=== PATIENT | female | born 1990 | race American Indian/Alaskan Native ===

== ENCOUNTER 2020-12-19 18:16 | Emergency (ER) | payer BC ==
[2020-12-19 18:39] VITALS: BP 110/64
[2020-12-19] MEDS ORDERED: hydrOXYzine HCL 25 MG TAB PO ONE (18:43)
--- NOTE | 2020-12-19 19:03 | Emergency Department Report ---
ED General Adult HPI - General Chief complaint: Anxiety Stated complaint: TIGHTNESS IN CHEST Time Seen by Provider: 12/19/20 18:38 Source: patient Mode of arrival: Ambulatory Limitations: No Limitations - History of Present Illness Initial comments: Patient is a 30-year-old female who presents emergency room complaints of "possible anxiety/panic attack." She states that she has been feeling chest tightness for couple of days. Patient states that her mother was just recently admitted for pneumonia and her mother's is not able to fully care for himself and she is also working a job and going to school and she has had a lot of increased stress. She denies any shortness of breath, fever, cough, nausea, vomiting, diarrhea, diaphoresis, leg swelling, calf pain, hemoptysis. She denies any recent travel, recent surgery, hormone use. Past medical history of asthma and GERD. No allergies to medications. She is a never smoker. - Related Data Previous Rx's Medication Instructions Recorded Last Taken Type hydrOXYzine HCL [Atarax] 25 mg PO Q6HR PRN #10 tablet 12/19/20 Unknown Rx Allergies Allergy/AdvReac Type Severity Reaction Status Date / Time No Known Allergies Allergy Verified 12/19/20 18:39 ED Review of Systems ROS: Stated complaint: TIGHTNESS IN CHEST Other details as noted in HPI Comment: All other systems reviewed and negative ED Past Medical Hx - Past Medical History Hx GERD: Yes Hx Asthma: Yes - Surgical History Past Surgical History?: No - Social History Smoking Status: Never Smoker Substance Use Type: None - Medications Home Medications: Home Medications Medication Instructions Recorded Confirmed Last Taken Type hydrOXYzine HCL [Atarax] 25 mg PO Q6HR PRN #10 tablet 12/19/20 Unknown Rx ED Physical Exam - General Limitations: No Limitations General appearance: alert, in no apparent distress - Head Head exam: Present: atraumatic, normocephalic - Eye Eye exam: Present: normal appearance - ENT ENT exam: Present: mucous membranes moist - Respiratory Respiratory exam: Present: normal lung sounds bilaterally. Absent: respiratory distress, wheezes, rales, rhonchi, stridor, chest wall tenderness, accessory muscle use, decreased breath sounds, prolonged expiratory - Cardiovascular Cardiovascular Exam: Present: regular rate, normal rhythm, normal heart sounds. Absent: systolic murmur, diastolic murmur, rubs, gallop - Neurological Exam Neurological exam: Present: alert, oriented X3 - Psychiatric Psychiatric exam: Present: anxious. Absent: homicidal ideation, suicidal ideation - Skin Skin exam: Present: warm, dry, intact ED Course Vital Signs 12/19/20 18:38 Temperature 98.3 F Pulse Rate 96 H Respiratory 16 Rate Blood Pressure 110/64 [Left] O2 Sat by Pulse 99 Oximetry ED Medical Decision Making - Lab Data Result diagrams: 12/19/20 18:48 12/19/20 18:48 Lab Results 12/19/20 12/19/20 12/19/20 Range/Units 18:48 18:48 18:48 WBC 6.9 (4.5-11.0) K/mm3 RBC 4.10 (3.65-5.03) M/mm3 Hgb 11.8 (10.1-14.3) gm/dl Hct 35.2 (30.3-42.9) % MCV 86 (79-97) fl MCH 29 (28-32) pg MCHC 34 (30-34) % RDW 14.6 (13.2-15.2) % Plt Count 294 (140-440) K/mm3 Lymph % (Auto) 24.4 (13.4-35.0) % [place] % (Auto) 11.4 H (0.0-7.3) % Eos % (Auto) 0.9 (0.0-4.3) % Baso % (Auto) 1.0 (0.0-1.8) % Lymph # (Auto) 1.7 (1.2-5.4) K/mm3 [place] # (Auto) 0.8 (0.0-0.8) K/mm3 Eos # (Auto) 0.1 (0.0-0.4) K/mm3 Baso # (Auto) 0.1 (0.0-0.1) K/mm3 Seg Neutrophils % 62.3 (40.0-70.0) % Seg Neutrophils # 4.3 (1.8-7.7) K/mm3 Sodium 138 (137-145) mmol/L Potassium 4.1 (3.6-5.0) mmol/L Chloride 102.3 (98-107) mmol/L Carbon Dioxide 22 (22-30) mmol/L Anion Gap 18 mmol/L BUN 5 L (7-17) mg/dL Creatinine 0.6 (0.6-1.2) mg/dL Estimated GFR > 60 ml/min BUN/Creatinine Ratio 8 % Glucose 110 H (65-100) mg/dL Calcium 9.7 (8.4-10.2) mg/dL Total Bilirubin 0.70 (0.1-1.2) mg/dL AST 23 (5-40) units/L ALT 11 (7-56) units/L Alkaline Phosphatase 72 (35-129) units/L Troponin T < 0.010 (0.00-0.029) ng/mL Total Protein 8.0 (6.3-8.2) g/dL Albumin 4.5 (3.9-5) g/dL Albumin/Globulin Ratio 1.3 % HCG, Qual Negative (Negative) - EKG Data EKG shows normal: sinus rhythm, axis, intervals, QRS complexes, ST-T waves Rate: normal - Radiology Data Radiology results: report reviewed Ordering Physician: EVIE SIGALA Date of Service: 12/19/20 Procedure(s): XR chest routine 2V Accession Number(s): [id number] cc: EVIE SIGALA Fluoro Time In Minutes: CHEST 2 VIEWS INDICATION / CLINICAL INFORMATION: chest tightness. COMPARISON: None available. FINDINGS: SUPPORT DEVICES: None. HEART / MEDIASTINUM: No significant abnormality. LUNGS / PLEURA: No significant pulmonary or pleural abnormality. No pneumothorax. ADDITIONAL FINDINGS: No significant additional findings. IMPRESSION: 1. No acute findings. Signer Name: Shivani Leal MD Signed: 12/19/2020 7:49 PM Workstation Name: [id number] Transcribed By: JR Dictated By: Shivani Leal MD Electronically Authenticated By: Shivani Leal MD Signed Date/Time: 12/19/201948 DD/ 47 TD/TT: - Medical Decision Making Patient is a 30-year-old female who presents emergency room complaints of "possible anxiety/panic attack." She states that she has been feeling chest tightness for couple of days. Patient states that her mother was just recently admitted for pneumonia and her mother's is not able to fully care for himself and she is also working a job and going to school and she has had a lot of increased stress. She denies any shortness of breath, fever, cough, nausea, vomiting, diarrhea, diaphoresis, leg swelling, calf pain, hemoptysis. She denies any recent travel, recent surgery, hormone use. Past medical history of asthma and GERD. No allergies to medications. She is a never smoker. Vitals are stable. No wheezing, rales, rhonchi on exam. Labs are normal. Troponin is negative. EKG is within normal limits. Chest x-ray: 1. No acute findings. Patient given hydroxyzine while in the emergency department with some improvement of her symptoms. Per criteria negative for PE, PE unlikely. Patient states that she does have an albuterol inhaler at home to take as needed for her asthma, advised patient that if she was having any shortness of breath, wheezing or chest tightness she could attempt to use her inhaler. She has no signs of asthma exacerbation at this time. Advised patient Please take medication as prescribed as needed. Follow-up with a primary care doctor. Return to emergency room for any new or worsening symptoms. Critical care attestation.: If time is entered above; I have spent that time in minutes in the direct care of this critically ill patient, excluding procedure time. ED Disposition Clinical Impression: Chest tightness, Anxiety Disposition: 01 HOME / SELF CARE / HOMELESS Is pt being admited?: No Does the pt Need Aspirin: No Condition: Stable Instructions: Nonspecific Chest Pain, Adult, Managing Anxiety, Adult Additional Instructions: Please take medication as prescribed as needed. Follow-up with a primary care doctor. Return to emergency room for any new or worsening symptoms. Prescriptions: hydrOXYzine HCL [Atarax] 25 mg PO Q6HR PRN #10 tablet PRN Reason: anxiety Referrals: JOAO RUIZ MD [Primary Care Provider] - 2-3 Days AKIN CRUZ MD [Staff Physician] - 2-3 Days [facility] [Provider Group] - 2-3 Days Time of Disposition: 20:01 Print Language: THAI
[2020-12-19 19:05] LABS: Basophils # (Auto) 0.1 K/mm3 (0.0-0.1); Eosinophils # (Auto) 0.1 K/mm3 (0.0-0.4); Eosinophils % (Auto) 0.9 % (0.0-4.3); Hematocrit 35.2 % (30.3-42.9); Hemoglobin 11.8 gm/dl (10.1-14.3); Lymphocytes # (Auto) 1.7 K/mm3 (1.2-5.4); Lymphocytes % (Auto) 24.4 % (13.4-35.0); Mean Corpuscular HGB Conc 34 % (30-34); Mean Corpuscular Volume 86 fl (79-97); Monocytes # (Auto) 0.8 K/mm3 (0.0-0.8); Monocytes % (Auto) 11.4 % (0.0-7.3); Platelet Count 294 K/mm3 (140-440); Red Cell Distribution Width 14.6 % (13.2-15.2)
[2020-12-19 19:29] LABS: Alanine Aminotransferase 11 units/L (7-56); Albumin 4.5 g/dL (3.9-5); Blood Urea Nitrogen 5 mg/dL (7-17); Calcium 9.7 mg/dL (8.4-10.2); Hemolysis Index 9
[2020-12-19 19:32] LABS: BUN/Creatinine Ratio 8
--- NOTE | 2020-12-19 19:53 | XRay Report ---
CHEST 2 VIEWS INDICATION / CLINICAL INFORMATION: chest tightness. COMPARISON: None available. FINDINGS: SUPPORT DEVICES: None. HEART / MEDIASTINUM: No significant abnormality. LUNGS / PLEURA: No significant pulmonary or pleural abnormality. No pneumothorax. ADDITIONAL FINDINGS: No significant additional findings. IMPRESSION: 1. No acute findings. Signer Name: Shivani Leal MD Signed: 12/19/2020 7:49 PM Workstation Name: [id number]
--- NOTE | 2020-12-20 11:55 | Electrocardiograph Report ---
[facility] Test Date: 2020-12-19 Test Time: 18:20:21 Pat Name: MICHAEL LANIER Department: Room: Gender: F [employer] Operator: DAE : 1990 Requested By: LEN EVERETT Order Number: [id number] Reading MD: Chap[place] Elizabeth Measurements Intervals [place] Rate: 90 P: 31 MS: 153 QRS: 56 QRSD: 68 T: 29 QT: 364 QTc: 447 Interpretive Statements Sinus rhythm non specfici st-t No previous ECG available for comparison Electronically Signed On 12-20-2020 11:54:56 EDT by [place]ito Elizabeth
== END 2020-12-19 20:24 | disposition home or self-care (01) ==
LOC: ED 18:16
DX: R07.89 Other chest pain (principal); F41.9 Anxiety disorder, unspecified; K21.9 Gastro-esophageal reflux disease without esophagitis; J45.909 Unspecified asthma, uncomplicated
CPT/HCPCS: 36415; 71046; 80053; 84484; 84703; 85025; 93005; 99283